=== PATIENT | female | born 1970 ===

== ENCOUNTER 2023-07-17 04:22 | Day surgery (SDC) | payer BC ==
[2023-07-15 12:29] VITALS: BMI 30.1
[2023-07-17 08:42] VITALS: TEMP 97.8
[2023-07-17 09:12] VITALS: BP 123/78; PULSE 77; RESP 18
== END 2023-07-17 09:15 | disposition home or self-care (01) ==
LOC: JASU-ENDO 04:22
PROVIDERS: ATTEND Internal Medicine Gastroenterology
PROC: 0DBK8ZX Excision of Ascending Colon, Via Natural or Artificial Opening Endoscopic, Diagnostic (ICD-10-PCS; principal; 2023-07-17 08:00)
DX: Z12.11 Encounter for screening for malignant neoplasm of colon (principal); D12.2 Benign neoplasm of ascending colon; K64.8 Other hemorrhoids; K59.89 Other specified functional intestinal disorders; K63.89 Other specified diseases of intestine
CPT/HCPCS: 81025; 88305-TC